=== PATIENT | female | born 1955 | race Caucasian/White ===

== ENCOUNTER 2016-12-29 07:30 | Outpatient (CLI) | payer BC, OTHER ==
[2016-12-29 08:26] LABS: #Basophils 0.1 thou/uL (0.0-0.2); #Eosinphils 0.1 thou/uL (0.0-0.7); #Lymphocytes 3.3 thou/uL (1.20-3.40); #Monocytes 0.8 thou/uL (0.11-0.59); #Neutrophils 5.4 thou/uL (1.40-6.50); %Basophils 1.1 % (0.0-1.0); %Eosinophils 1.4 % (0.0-10.0); %Monocytes 8.1 % (0.0-10.0); %Neutrophils 55.4 % (42.0-75.0); Hemoglobin 14.3 g/dL (12.0-16.0); Mean Corpuscular HGB CONC 33.5 g/dL (32.0-36.0); Mean Corpuscular Hemoglobin 29.7 pg (27.0-31.0); Mean Corpuscular Volume 88.7 fl (81.0-99.0); Mean Platelet Volume 10.5 fL (7.4-10.4); Platelet Count 194 thou/uL (130-400); RBC Distribution Width 11.4 % (11.5-14.5); Red Blood Cell (RBC) Count 4.81 mill/uL (4.20-5.40); White Blood Cell (WBC) Count 9.8 thou/uL (4.8-10.8)
[2016-12-29 08:37] LABS: ALT (SGPT) 21 U/L (8-55); AST (SGOT) 18 U/L (5-34); Alkaline Phosphatase 80 U/L (40-150); Anion Gap 15 mmol/L (10-20); BUN (Urea Nitrogen) 12 mg/dL (9.8-20.1); Bilirubin, Total 0.7 mg/dL (0.2-1.2); Calc. Creatinine Clearance 0 mL/min (70-130); Calcium 9.2 mg/dL (7.8-10.44); Carbon Dioxide 23 mmol/L (22-29); Cardiac Risk 3.5 (Less than 4.5); Chloride 107 mmol/L (98-107); Cholesterol 157 mg/dl (< 200 Desired); Estimated GFR-MDRD 73; Globulin 2.9 g/dL (2.4-3.5); Glucose 116 mg/dL (70-105); HDL Cholesterol 45 mg/dL (>60 Neg Risk); LDL Cholesterol, Calculated 83 mg/dL; Potassium 3.7 mmol/L (3.5-5.1); Protein, Total 6.9 g/dL (6.0-8.3); Sodium 141 mmol/L (136-145); Triglycerides 144 mg/dL (Less than 150)
[2016-12-29 17:31] LABS: Creatinine, Urine 225.34 mg/dL (47-110); Microalbumin Urine 1.3 mg/dL (0.5-50.0); Microalbumin/Creat Ratio 5.8 mg/g (Less than 30)
== END 2016-12-29 07:31 ==
LOC: MADLABBHPM 07:30
PROVIDERS: ATTEND Family Medicine
DX: E03.9 Hypothyroidism, unspecified (principal); E11.65 Type 2 diabetes mellitus with hyperglycemia
CPT/HCPCS: 36415; 80053; 80061; 82043; 83036; 84443; 85025

== ENCOUNTER 2018-09-26 17:18 | Emergency (ER) | payer BC, OTHER ==
[~2018-09-26 17:18] MED LIST: Iopamidol 370 76% 75 ML VIAL FS ONE
[2018-09-26 17:51] LABS: #Basophils 0.1 thou/uL (0.0-0.2); #Eosinphils 0.1 thou/uL (0.0-0.7); #Lymphocytes 3.2 thou/uL (1.20-3.40); #Monocytes 0.8 thou/uL (0.11-0.59); #Neutrophils 8.1 thou/uL (1.40-6.50); %Basophils 1.1 % (0.0-1.0); %Eosinophils 0.9 % (0.0-10.0); %Lymphocytes 25.9 % (21.0-51.0); %Monocytes 6.8 % (0.0-10.0); %Neutrophils 65.3 % (42.0-75.0); Hemoglobin 14.7 g/dL (12.0-16.0); Mean Corpuscular HGB CONC 33.5 g/dL (32.0-36.0); Mean Corpuscular Hemoglobin 29.6 pg (27.0-31.0); Mean Corpuscular Volume 88.4 fL (78.0-98.0); Platelet Count 213 thou/uL (130-400); RBC Distribution Width 11.7 % (11.5-14.5); Red Blood Cell (RBC) Count 4.97 mill/uL (4.20-5.40); White Blood Cell (WBC) Count 12.4 thou/uL (4.8-10.8)
[2018-09-26 17:54] LABS: Prothrombin Time 13.5 SEC (12.0-14.7)
[2018-09-26 18:04] LABS: ALT (SGPT) 21 U/L (8-55); AST (SGOT) 17 U/L (5-34); Albumin 4.4 g/dL (3.4-4.8); Alkaline Phosphatase 87 U/L (40-150); Anion Gap 17 mmol/L (10-20); BUN (Urea Nitrogen) 12 mg/dL (9.8-20.1); Bilirubin, Total 0.7 mg/dL (0.2-1.2); Calc. Creatinine Clearance 0 mL/min (70-130); Calcium 9.5 mg/dL (7.8-10.44); Carbon Dioxide 23 mmol/L (23-31); Chloride 102 mmol/L (98-107); Estimated GFR-MDRD 61; Globulin 3.4 g/dL (2.4-3.5); Glucose 243 mg/dL (80-115); Potassium 4.2 mmol/L (3.5-5.1); Protein, Total 7.8 g/dL (6.0-8.3); Sodium 138 mmol/L (136-145)
[2018-09-26] MEDS ORDERED: Ondansetron PF 4 MG/2 ML Vial ONE (18:38)
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
[2018-09-26] MEDS ORDERED: Morphine 4 MG/ML VIAL ONE (20:27)
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
[2018-09-26] MEDS ORDERED: Ondansetron ODT 4 MG TAB ONE (20:28)
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
== END 2018-09-26 21:02 | disposition home or self-care (01) ==
LOC: MADERS 17:18
DX: Z04.1 Encounter for examination and observation following transport accident (principal); I25.10 Atherosclerotic heart disease of native coronary artery without angina pectoris; E11.9 Type 2 diabetes mellitus without complications; I10 Essential (primary) hypertension; E66.9 Obesity, unspecified; Z79.899 Other long term (current) drug therapy; V89.2XXA Person injured in unspecified motor-vehicle accident, traffic, initial encounter
CPT/HCPCS: 70450; 71260; 72125; 74177; 80053; 85025; 85610; 96372; 96374; J2270; J2405; Q0162

== ENCOUNTER 2020-02-01 19:28 | Emergency (ER) | payer BC ==
[2020-02-01] MEDS ORDERED: Ketorolac Tromethamine 60 MG/2 ML VIAL ONE (20:11)
--- NOTE | 2020-02-01 20:32 | RAD ---
XR Femur Lt 2 View STANDARD History: Pain Comparison: None. Findings: Femur is intact. No acute displaced fracture or malalignment. Cortical irregularity distal aspect lateral femoral metaphysis likely from an old injury. Impression: No acute osseous abnormality
[2020-02-01 20:53] LABS: #Basophils 0.1 thou/uL (0.0-0.2); #Eosinphils 0.1 thou/uL (0.0-0.7); #Lymphocytes 3.1 thou/uL (1.20-3.40); #Monocytes 0.6 thou/uL (0.11-0.59); #Neutrophils 4.6 thou/uL (1.40-6.50); %Eosinophils 1.4 % (0.0-10.0); %Lymphocytes 36.1 % (21.0-51.0); %Monocytes 7.5 % (0.0-10.0); %Neutrophils 54.1 % (42.0-75.0); Mean Corpuscular Hemoglobin 28.1 pg (27.0-31.0); Mean Corpuscular Volume 90.7 fL (78.0-98.0); Mean Platelet Volume 11.6 fL (7.4-10.4); Platelet Count 210 thou/uL (130-400); RBC Distribution Width 11.8 % (11.5-14.5); Red Blood Cell (RBC) Count 4.98 mill/uL (4.20-5.40); White Blood Cell (WBC) Count 8.5 thou/uL (4.8-10.8)
[2020-02-01 21:03] LABS: Anion Gap 15 mmol/L (10-20); BUN (Urea Nitrogen) 14 mg/dL (9.8-20.1); Calc. Creatinine Clearance 0 mL/min (70-130); Calcium 9.4 mg/dL (7.8-10.44); Carbon Dioxide 25 mmol/L (23-31); Chloride 102 mmol/L (98-107); Estimated GFR-MDRD 56; Glucose 320 mg/dL (80-115); Potassium 4.4 mmol/L (3.5-5.1); Sodium 138 mmol/L (136-145)
== END 2020-02-01 21:44 | disposition home or self-care (01) ==
LOC: MADERS 19:28
DX: M79.652 Pain in left thigh (principal); I25.10 Atherosclerotic heart disease of native coronary artery without angina pectoris; E11.9 Type 2 diabetes mellitus without complications; E03.9 Hypothyroidism, unspecified; E66.9 Obesity, unspecified
CPT/HCPCS: 36415; 80048; 85025; 85379; 96372; J1885

== ENCOUNTER 2020-12-18 19:01 | Emergency (ER) | payer BC ==
[2020-12-18 19:41] LABS: Bilirubin Negative (Negative); Blood, Urine Negative (Negative); Clarity Hazy (Clear); Glucose, Urine (Dipstick) >=1000 mg/dL (Negative); Ketone, Urine Trace mg/dL (Negative); Leukocyte Trace (Negative); Nitrite Negative (Negative); Protein, Urine (Dipstick) Negative (Neg-Trace); Urobilinogen 0.2 mg/dL (Less than 2)
[2020-12-18 19:47] LABS: RBC/HPF None Seen HPF (0-3)
[2020-12-18 19:48] LABS: Bacteria/HPF Rare-Few HPF (None Seen)
[2020-12-18] MEDS ORDERED: Ketorolac Tromethamine 30 MG/ML VIAL ONE (19:58)
== END 2020-12-18 20:22 | disposition short-term general hospital (02) ==
LOC: MADERS 19:01
DX: M79.662 Pain in left lower leg (principal); R30.0 Dysuria; I25.10 Atherosclerotic heart disease of native coronary artery without angina pectoris; E11.9 Type 2 diabetes mellitus without complications; E03.9 Hypothyroidism, unspecified; I10 Essential (primary) hypertension; E66.9 Obesity, unspecified
CPT/HCPCS: 81003; 81015; 96372; J1885

== ENCOUNTER 2024-06-20 08:21 | Emergency (ER) | payer MEDICARE, OTHER ==
[2024-06-20 09:15] LABS: Bilirubin Negative (Negative); Blood, Urine Trace (Negative); Clarity Hazy (Clear); Glucose, Urine (Dipstick) >=1000 mg/dL (Negative); Ketone, Urine Trace mg/dL (Negative); Leukocyte Small (Negative); Nitrite Negative (Negative); Protein, Urine (Dipstick) Negative (Neg-Trace); Urobilinogen 0.2 mg/dL (Less than 2)
[2024-06-20] MEDS ORDERED: Sodium Chloride 0.9% 1,000 ML ONE ×2 (09:18→14:44)
[2024-06-20 09:21] LABS: CAUTI Indications for Culture Pelvic or flank pain; RBC/HPF 0-3 HPF (0-3); WBC/HPF 21-50 HPF (0-3)
[2024-06-20 09:28] LABS: Bacteria/HPF Rare-Few HPF (None Seen)
[2024-06-20 09:28] LABS: #Basophils 0.1 thou/uL (0.0-0.2); #Eosinophils 0.2 thou/uL (0.0-0.7); #Lymphocytes 2.4 thou/uL (1.20-3.40); #Monocytes 0.9 thou/uL (0.11-0.59); #Neutrophils 8.1 thou/uL (1.40-6.50); %Basophils 0.9 % (0.0-1.0); %Eosinophils 1.6 % (0.0-10.0); %Lymphocytes 20.7 % (21.0-51.0); %Monocytes 7.4 % (0.0-10.0); %Neutrophils 69.4 % (42.0-75.0); Hematocrit 50.5 % (36.0-47.0); Hemoglobin 15.9 g/dL (12.0-16.0); Mean Corpuscular HGB CONC 31.5 g/dL (32.0-36.0); Mean Corpuscular Hemoglobin 28.5 pg (27.0-31.0); Mean Corpuscular Volume 90.3 fl (78.0-98.0); Mean Platelet Volume 11.3 fL (7.4-10.4); Platelet Count 204 10x3/uL (130-400); RBC Distribution Width 11.7 % (11.5-14.5); Red Blood Cell (RBC) Count 5.59 mill/uL (4.20-5.40); White Blood Cell (WBC) Count 11.7 10x3/uL (4.8-10.8)
[2024-06-20 09:29] LABS: Urine Culture Reflex Yes Yes
[2024-06-20 09:47] LABS: ALT (SGPT) 15 U/L (8-55); AST (SGOT) 15 U/L (5-34); Alkaline Phosphatase 95 U/L (40-110); Anion Gap 18 mmol/L (10-20); BUN (Urea Nitrogen) 13 mg/dL (9.8-20.1); Bilirubin, Total 1.2 mg/dL (0.2-1.2); Calc. Creatinine Clearance 0 mL/min (70-130); Calcium 9.4 mg/dL (7.8-10.44); Carbon Dioxide 21 mmol/L (23-31); Chloride 103 mmol/L (98-107); Estimated GFR 60; Globulin 3.7 g/dL (2.4-3.5); Glucose 233 mg/dL (80-115); Potassium 4.4 mmol/L (3.5-5.1); Protein, Total 7.7 g/dL (5.8-8.1); Sodium 138 mmol/L (136-145)
[2024-06-20 09:50] LABS: Troponin I Less than 0.010 ng/mL (< 0.028)
[2024-06-20] MEDS ORDERED: Sodium Chloride 0.9% 100 ML ONE (10:17)
[2024-06-20] MEDS ORDERED: cefTRIAXone (ROCEPHIN) 1 GM VIAL ONE (10:17)
[2024-06-20] MEDS ORDERED: Acyclovir 200 mg Capsule ONE ×2 (10:26→10:31)
[2024-06-20] MEDS ORDERED: Acetaminophen 500 MG TAB ONE (15:55)
== END 2024-06-20 17:11 | disposition short-term general hospital (02) ==
LOC: MADERS 08:21
DX: B02.9 Zoster without complications (principal); N39.0 Urinary tract infection, site not specified; E11.9 Type 2 diabetes mellitus without complications; E03.9 Hypothyroidism, unspecified; I10 Essential (primary) hypertension; Z79.84 Long term (current) use of oral hypoglycemic drugs; Z79.899 Other long term (current) drug therapy; Z79.82 Long term (current) use of aspirin
CPT/HCPCS: 71045; 80053; 81001; 83605; 84484; 85025; 87040; 87086; 96365; J0696; J7030

== ENCOUNTER 2024-07-10 14:14 | Outpatient (CLI) | payer MEDICARE, OTHER | END 2024-07-10 14:15 | disposition home or self-care (01) | LOC: MADLAB 14:14 | PROVIDERS: ATTEND Family Medicine | DX: R05.9 Cough, unspecified (principal); A06.0 Acute amebic dysentery | CPT/HCPCS: 71046 ==